=== PATIENT | female | born 1975 | race Two or more races ===

== ENCOUNTER 2019-07-28 13:35 | Emergency (ER) | payer OTHER ==
[~2019-07-28] VITALS: Ht 162.6 cm; Wt 78.5 kg
[2019-07-28] MEDS ORDERED: LOSARTAN POTASS25 MG (14:07)
== END 2019-07-28 17:35 | disposition home or self-care (01) ==
LOC: ER 13:35
DX: M54.5 Low back pain (principal)

== ENCOUNTER 2023-06-12 09:38 | Emergency (ER) | payer OTHER ==
[~2023-06-12] VITALS: Ht 167.6 cm; Wt 77.1 kg
[~2023-06-12 09:38] MED LIST: LOSARTAN POTASS25 MG
[2023-06-12] MEDS ORDERED: BUTALBIT-ACETA1 EACH PO (12:01)
== END 2023-06-12 12:13 | disposition home or self-care (01) ==
LOC: ER 09:38
DX: R51.9 Headache, unspecified (principal); Z88.6 Allergy status to analgesic agent; I10 Essential (primary) hypertension; Z20.822 Contact with and (suspected) exposure to COVID-19